=== PATIENT | male | born 1960 | race Caucasian/White ===

== ENCOUNTER 2021-01-26 14:17 | Emergency (ER) | payer OTHER, SELFPAY ==
[~2021-01-26] VITALS: Ht 172.7 cm; Wt 99.3 kg
[~2021-01-26 14:17] MED LIST: BRIM5SOL3 OP; CEPH500C16 PO; DORZ10SO11 OP; GLIP5TER PO; LATA2.5S14 OP; METF1000 PO; NETA2.5D OP
[2021-01-26 14:31] VITALS: BP 124/65
[2021-01-26] MEDS ORDERED: LIDOCAINE MPF 1% 10 MG/ML VIAL INJ ONE (15:10)
[2021-01-26] MEDS ORDERED: KETOROLAC 30 MG/ML VIAL IM ONE (15:10)
[2021-01-26] MEDS ORDERED: CEPH-588 PO (15:46)
[2021-01-26] MEDS ORDERED: ACET-10509 PO (15:46)
--- NOTE | 2021-01-26 15:53 | NUR ---
60/M presents to ED with right elbow pain. Patient states he had an infection that was surgically cleared one month ago. Patient states 5 days ago the site began to hurt and "feel infected." Patient states he went to be seen at [facility] this week and was sent home with antibiotics but states no relief. Right elbow appears red, swollen and infected. Patient describes it as 8/10 sharp pain when moving it, 5/10 when not in use. Patient able to move extremities appropriately, pulses and sensation equal bilaterally.
--- NOTE | 2021-01-26 15:59 | NUR ---
PT WOUND DRESSED WITH NON-ADHERENT
[2021-01-26 16:01] VITALS: BP 124/65
--- NOTE | 2021-01-26 16:02 | NUR ---
Patient discharged with v/s stable. Written and verbal after care instructions given and explained. Patient alert, oriented and verbalized understanding of instructions. Ambulatory with steady gait. All questions addressed prior to discharge. ID band removed. Patient advised to follow up with PMD. Rx of Tylenol extra strength and Keflex given. Patient educated on indication of medication including possible reaction and side effects. Opportunity to ask questions provided and answered.
== END 2021-01-26 16:02 | disposition home or self-care (01) ==
LOC: MED 14:17
DX: L02.511 Cutaneous abscess of right hand (principal); M25.521 Pain in right elbow; E11.9 Type 2 diabetes mellitus without complications; I10 Essential (primary) hypertension; Z79.899 Other long term (current) drug therapy; W19.XXXA Unspecified fall, initial encounter; Y93.89 Activity, other specified; Y92.89 Other specified places as the place of occurrence of the external cause; Y99.8 Other external cause status
CPT/HCPCS: 10060; 96372; 99283; J1885; J2001

== ENCOUNTER 2021-01-29 11:01 | Emergency (ER) | payer OTHER ==
[~2021-01-29] VITALS: Ht 172.7 cm; Wt 98.0 kg
[~2021-01-29 11:01] MED LIST changes: +ACET-10509 PO; +CEPH-588 PO
[2021-01-29 11:05] VITALS: BP 137/71
[2021-01-29 11:20] VITALS: BP 137/71
== END 2021-01-29 11:20 | disposition home or self-care (01) ==
LOC: MED 11:01
DX: L02.413 Cutaneous abscess of right upper limb (principal); E11.9 Type 2 diabetes mellitus without complications; I10 Essential (primary) hypertension; Z79.84 Long term (current) use of oral hypoglycemic drugs; Z79.899 Other long term (current) drug therapy
CPT/HCPCS: 99281

== ENCOUNTER 2021-05-28 14:50 | Inpatient (IN) | payer OTHER ==
[~2021-05-28] VITALS: Ht 172.7 cm; Wt 86.2 kg
[2021-05-28] MEDS ORDERED: KETOROLAC 30 MG/ML VIAL ONE (15:38)
[2021-05-28] MEDS ORDERED: ONDANSETRON 4 MG/2 ML VIAL ONE (15:38)
[2021-05-28] MEDS ORDERED: MORPHINE SULFATE 4 MG/ML SYR ONE (15:39)
[2021-05-29 02:05] LABS: ANION GAP 14.2 (8-16); CARBON DIOXIDE 25.8 mmol/L (21-32)
[2021-05-29 02:06] LABS: ALBUMIN 2.8 g/dL (3.4-5.0); TOTAL BILIRUBIN 0.2 mg/dL (0.0-1.0)
[2021-05-29 02:08] LABS: HEMATOCRIT 33.6 % (36-52); HEMOGLOBIN 11.2 g/dL (12.0-18.0); MEAN CORPUSCULAR HEMOGLOBIN 29 pg (27-31); MEAN CORPUSCULAR HGB CONC 33 g/dL (33-37); MEAN CORPUSCULAR VOLUME 85.6 fL (80-94); PLATELET COUNT (AUTO) 467 K/uL (140-450); RED BLOOD CELL COUNT(AUTO) 3.92 MIL/uL (4.20-6.10); RED CELL DISTRIBUTION WIDTH 16.5 % (11.6-13.7); WHITE BLOOD COUNT (AUTO) 11.9 K/uL (4.8-10.8)
[2021-05-29 02:09] LABS: BASOPHILS % (AUTO) 0.1 % (0.0-2.0); EOSINOPHILS % (AUTO) 0.3 % (0.0-4.0); LYMPHOCYTES # (AUTO) 1.8 K/uL (2.0-11.5); LYMPHOCYTES % (AUTO) 15.4 % (20.5-51.1); MONOCYTES # (AUTO) 0.8 K/uL (0.8-1.0); MONOCYTES % (AUTO) 6.6 % (1.7-9.3); NEUTROPHILS # (AUTO) 9.2 K/uL (1.8-7.7); NEUTROPHILS % (AUTO) 77.6 % (42.2-75.2)
[2021-05-29] MEDS ORDERED: MORPHINE SULFATE 4 MG/ML SYR ONE (02:15)
--- NOTE | 2021-05-29 02:20 | NUR ---
morhpine 4mg given to patient via IV. patient tolerated Medicine well. morphine 4mg given at [id number].
[2021-05-29] MEDS ORDERED: ACETAMINOPHEN 325 MG TAB PO PRN (03:10)
--- NOTE | 2021-05-29 03:55 | NUR ---
REFER TO DOWNTIME RECORDS
--- NOTE | 2021-05-29 03:56 | NUR ---
Patient appears to be resting comfortably in bed-- Low fowlers, eyes closed. Vital Signs within normal limits. Respirations even and unlabored. No sign of distress noted. Safety measures are in place, patient on the pvc monitor, and will continue to monitor patient.
--- NOTE | 2021-05-29 05:56 | NUR ---
Patient will be admitted to care of Sriram ALVARES. Admited to Med/Surg. Belongings list completed. Report to PURA RAMOS.
--- NOTE | 2021-05-29 06:05 | NUR ---
PT MOVED TO [facility] DEPT. FOR ADMSSION
[2021-05-29 06:15] VITALS: BP 146/69
--- NOTE | 2021-05-29 06:20 | NUR ---
ADMITTED THE PATIENT FROM ER VIA WHEELCHAIR. PATIENT A/A/OX4, AMBULATES WITH MINIMAL ASSIST AND ALSO USES CRUTCHES PER PATIENT. PATIENT CRUTCHES AT THE BEDSIDE. PATIENT NOT IN ANY DISTRESS AND NO COMPLAIN AT THIS TIME. VSS, AFEBRILE, SATING 96% ON RA. ORIENTED THE PATIENT TO THE ROOM SETTING AND USE OF CALL LIGHT SYSTEM. PATIENT VERBALIZED UNDERSTANDING WITH THE POC. CALL LIGHT WITHIN REACH WILL CONTINUE POC AND WILL ENDORSE THE PATIENT TO THE ONCOMING RN FOR CONTINUITY OF CARE.
[2021-05-29 07:05] LABS: BASOPHILS # (AUTO) 0.1 K/uL (0.00-0.22); BASOPHILS % (AUTO) 0.6 % (0.0-2.0); EOSINOPHILS % (AUTO) 0.5 % (0.0-4.0); HEMATOCRIT 35.4 % (36-52); HEMOGLOBIN 11.6 g/dL (12.0-18.0); LYMPHOCYTES # (AUTO) 2.5 K/uL (2.0-11.5); LYMPHOCYTES % (AUTO) 25.2 % (20.5-51.1); MEAN CORPUSCULAR HEMOGLOBIN 29 pg (27-31); MEAN CORPUSCULAR HGB CONC 33 g/dL (33-37); MEAN CORPUSCULAR VOLUME 86.9 fL (80-94); MONOCYTES # (AUTO) 0.6 K/uL (0.8-1.0); MONOCYTES % (AUTO) 5.7 % (1.7-9.3); NEUTROPHILS # (AUTO) 6.7 K/uL (1.8-7.7); PLATELET COUNT (AUTO) 467 K/uL (140-450); RED BLOOD CELL COUNT(AUTO) 4.07 MIL/uL (4.20-6.10); RED CELL DISTRIBUTION WIDTH 16.3 % (11.6-13.7); WHITE BLOOD COUNT (AUTO) 9.9 K/uL (4.8-10.8)
[2021-05-29] MEDS: BLOOD GLUCOSE MONITORING 1 DEV DEV FS SCH ×4 (07:30→20:47)
[2021-05-29 07:36] LABS: ALBUMIN 2.8 g/dL (3.4-5.0); ANION GAP 11.8 (8-16); CARBON DIOXIDE 26.5 mmol/L (21-32); CREATININE 0.8 mg/dL (0.6-1.3); POTASSIUM 4.3 mmol/L (3.5-5.1); TOTAL BILIRUBIN 0.2 mg/dL (0.0-1.0)
--- NOTE | 2021-05-29 08:00 | NUR ---
RECEIVED PATIENT CARE AND REPORT FROM [facility] NURSE OVER THE PHONE. PATIENT RESTING IN BED WITH EYES CLOSED. LAYING ON RIGHT SIDE. NO VISIBLE S/S OF DISTRESS, DISCOMFORT, SOB OR PAIN. ALL NEEDS HAVE BEEN MET AT THIS TIME.
[2021-05-29] MEDS: INSULIN LISPRO SLIDING SCALE 100 UNITS/ML VIAL SUBQ PRN ×4 (08:46→20:46)
[2021-05-29] MEDS ORDERED: ALBUTEROL SULFATE/IPRATROPIU 3 ML SOL IH PRN (14:25)
[2021-05-29] MEDS: HYDROcodone/APAP 5/325 MG 1 TAB TAB PO PRN (14:38)
[2021-05-29 16:00] VITALS: BP 161/68
[2021-05-29] MEDS: DOCUSATE SODIUM 100 MG GELCAP PO SCH (16:19)
[2021-05-29] MEDS ORDERED: hydrALAZINE 10 MG TAB PO PRN (18:55)
--- NOTE | 2021-05-29 19:59 | NUR ---
PT SEEN AND ASSESSED. FOUND PT ON ROOM AIR WITH SPO2 OF 98%. PT IS IN NO RESPIRATORY DISTRESS AT THIS TIME. WILL CONTINUE TO MONITOR PT.
--- NOTE | 2021-05-29 20:00 | NUR ---
NURSE REPORT REPORT OBTAINED FROM [facility] NURSE KATI AND THIS NURSE ASSUMED CARE OF PATIENT. RECEIVED PATIENT AMB TO BATHROOM BY HIMSELF WITH USE OF CRUTCHES. HE ASKED FOR A URINAL. HE WAS INSTRUCTED TO USE THE URINAL PROPERLY SO NOT TO SPILL ON THE FLOOR. TAMAZIGHT SPEAKING. DEMONSTRATED TO PATIENT. PATIENT JUST LAUGH.
--- NOTE | 2021-05-29 21:00 | NUR ---
NURSE CARE BG AT HS- 162. GIVEN 2 UNITS HUMALOG.
[2021-05-30] VITALS: BP 123/69
--- NOTE | 2021-05-30 | NUR ---
NURSE CARE VSS. AFEB. NO C/O PAIN OR DISCOMFORT.
[2021-05-30] MEDS: MORPHINE SULFATE 4 MG/ML SYR IVP PRN ×3 (01:18→19:55)
--- NOTE | 2021-05-30 04:00 | NUR ---
NURSE NOTES MEDICATED FOR PAIN WITH MORPHINE 4 MG IVP AT6 0118.L NO FURTHER C/O PAIN
[2021-05-30 06:22] LABS: ALBUMIN 2.6 g/dL (3.4-5.0); ANION GAP 9.2 (8-16); CARBON DIOXIDE 26.6 mmol/L (21-32); CREATININE 0.7 mg/dL (0.6-1.3); MAGNESIUM 1.8 mg/dL (1.8-2.4); POTASSIUM 3.8 mmol/L (3.5-5.1); TOTAL BILIRUBIN 0.2 mg/dL (0.0-1.0)
[2021-05-30 06:28] LABS: BASOPHILS % (AUTO) 0.1 % (0.0-2.0); EOSINOPHILS # (AUTO) 0.1 K/uL (0-0.4); EOSINOPHILS % (AUTO) 1.2 % (0.0-4.0); HEMATOCRIT 33.5 % (36-52); LYMPHOCYTES # (AUTO) 2.6 K/uL (2.0-11.5); LYMPHOCYTES % (AUTO) 26.4 % (20.5-51.1); MEAN CORPUSCULAR HEMOGLOBIN 29 pg (27-31); MEAN CORPUSCULAR HGB CONC 33 g/dL (33-37); MEAN CORPUSCULAR VOLUME 86.9 fL (80-94); MONOCYTES # (AUTO) 0.6 K/uL (0.8-1.0); MONOCYTES % (AUTO) 6.4 % (1.7-9.3); NEUTROPHILS # (AUTO) 6.6 K/uL (1.8-7.7); NEUTROPHILS % (AUTO) 65.9 % (42.2-75.2); PLATELET COUNT (AUTO) 454 K/uL (140-450); RED BLOOD CELL COUNT(AUTO) 3.85 MIL/uL (4.20-6.10); RED CELL DISTRIBUTION WIDTH 16.3 % (11.6-13.7)
[2021-05-30] MEDS: BLOOD GLUCOSE MONITORING 1 DEV DEV FS SCH ×4 (07:01→20:04)
--- NOTE | 2021-05-30 07:25 | NUR ---
NURSE REPORT AND ENDORSEMENT REPORT GIVEN TO [facility] NURSE FRIEDA TO ASSUME CARE OF PATIENT. ALL QUESTIONS ANSWERED.
--- NOTE | 2021-05-30 07:25 | NUR ---
Received report from pm nurse. Patient resting in bed, respirations even & nonlabored in room air. No signs of pain. Call light within reach.
[2021-05-30 08:00] VITALS: BP 150/80
--- NOTE | 2021-05-30 08:24 | NUR ---
PATIENT HAS BEEN SCREENED AND CATEGORIZED LOW NUTRITION RISK. PATIENT WILL BE SEEN WITHIN 7 DAYS OF ADMISSION. 06/04/[address]
[2021-05-30] MEDS: DOCUSATE SODIUM 100 MG GELCAP PO SCH (08:44)
--- NOTE | 2021-05-30 09:30 | NUR ---
Right elbow wound reopened and draining heavy purulent discharge. Patient c/o mild pain to site and states it is tolerable. Dr. Freitas notified with wound care order and wound cx.
--- NOTE | 2021-05-30 09:45 | NUR ---
Wound care provided to right elbow. Patient tolerated procedure well.
[2021-05-30] MEDS ORDERED: VANCOMYCIN PER PHARMACY MC PRN (09:50)
[2021-05-30] MEDS: VANCOMYCIN HCL 1.25 GM in DEXTROSE 5% 250 ML IV SCH ×2 (11:30→23:22)
[2021-05-30] MEDS: INSULIN LISPRO SLIDING SCALE 100 UNITS/ML VIAL SUBQ PRN ×2 (12:19→20:04)
[2021-05-30] MEDS: HYDROcodone/APAP 5/325 MG 1 TAB TAB PO PRN (13:06)
--- NOTE | 2021-05-30 13:59 | NUR ---
DC PLANNING: CM SPOKE WITH THE PATIENT BY PHONE USING A JOINTER MACHINE OPERATOR. THE PATIENT LIVES IN A SINGLE STORY HOUSE WITH HIS NIECE, HER AND THEIR CHILDREN. HE SEES HIS PCP REGULARLY, AND WAS RECENTLY IN [facility] FOR 2 WEEKS FOR SEPSIS, AND THEN DC'D TO [facility] FOR 4 WEEKS. HE IS ABLE TO AMBULATE FOR 3 BLOCKS WITH FREQUENT RESTS, AND USES A FWW OR CRUTCHES. THE PATIENT IS INDEPENDENT WITH ADL'S, HE ALSO HAS A SHOWER CHAIR, AND HAS HAD HOME HEALTH IN THE PAST BUT CAN'T REMEMBER THE AGENCIES NAME. HE STATES THAT HIS FWW IS BROKEN, ORDER FOR FWW FAXED TO [facility] PER THEIR INSTRUCTIONS, CM ASKED THAT IT BE DELIVERED TO THE PATIENTS HOUSE. PATIENT WILL HAVE WOUND CARE SUPPLIES SENT HOME WITH HIM, FAMILY TO CHANGE DRESSING NEEDED. CM WILL FOLLOW FOR NEEDS. Addendum: 05/30/21 at 1527 by Peace Gallegos CM DC PLANNING: ORDER FOR THE PATIENT TO HAVE A GENERAL SURGERY CONSULT FAXED TO HIS PCP DR NUBIA DAY. CM WILL FOLLOW FOR NEEDS.
[2021-05-30 16:00] VITALS: BP 106/56
--- NOTE | 2021-05-30 20:00 | NUR ---
NURSE REPORT REPORT OBTAINED FROM [facility] AND THIS NURSE ASSUMED CARE OF PATIENT. VSS. AFEB. MEDICATED FOR PAIN WITH MORPHINE 4 MG IVP WITH RELIEF.
--- NOTE | 2021-05-30 21:00 | NUR ---
NURSE NOTES BG 286. GIVEN 6 UNITS HUMALOG.
[2021-05-31] VITALS: BP 138/63
[2021-05-31] MEDS: MORPHINE SULFATE 4 MG/ML SYR IVP PRN ×4 (04:17→20:30)
--- NOTE | 2021-05-31 04:30 | NUR ---
NURSE NOTES VSS. AFEB. MEDICATED FOR PAIN AT 1955, 000, AND 0417 AND RELIEVED OF PAIN. ON IVPB ANTIBIOTICS VANCO AND ROCEPHIN.
[2021-05-31 06:49] LABS: BASOPHILS # (AUTO) 0.1 K/uL (0.00-0.22); BASOPHILS % (AUTO) 0.6 % (0.0-2.0); EOSINOPHILS # (AUTO) 0.2 K/uL (0-0.4); HEMATOCRIT 33.3 % (36-52); HEMOGLOBIN 10.8 g/dL (12.0-18.0); LYMPHOCYTES % (AUTO) 24.5 % (20.5-51.1); MEAN CORPUSCULAR HEMOGLOBIN 29 pg (27-31); MEAN CORPUSCULAR HGB CONC 33 g/dL (33-37); MEAN CORPUSCULAR VOLUME 87.7 fL (80-94); MONOCYTES # (AUTO) 0.6 K/uL (0.8-1.0); MONOCYTES % (AUTO) 7.7 % (1.7-9.3); NEUTROPHILS # (AUTO) 5.4 K/uL (1.8-7.7); NEUTROPHILS % (AUTO) 65.2 % (42.2-75.2); PLATELET COUNT (AUTO) 431 K/uL (140-450); RED CELL DISTRIBUTION WIDTH 16.3 % (11.6-13.7); WHITE BLOOD COUNT (AUTO) 8.2 K/uL (4.8-10.8)
[2021-05-31] MEDS: INSULIN LISPRO SLIDING SCALE 100 UNITS/ML VIAL SUBQ PRN ×3 (07:12→20:40)
[2021-05-31] MEDS: BLOOD GLUCOSE MONITORING 1 DEV DEV FS SCH ×4 (07:13→20:39)
--- NOTE | 2021-05-31 07:30 | NUR ---
RECEIVED BEDSIDE REPORT FROM [facility] SHIFT NURSE. PATIENT RESTING IN BED, L SIDE LATERAL, ANSWERS TO NAME, ALERT. BREATHING EVEN AND UNLABORED, NO SIGNS OF ACUTE DISTRESS NOTED ON RA. L AC 20G, SL. BED IN LOW POSITION, CALL LIGHT WITHIN REACH, SAFETY MEASURES IN PLACE.
--- NOTE | 2021-05-31 07:30 | NUR ---
NURSE REPORT REPORT GIVEN TO [facility] NURSE MARCELL TO ASSUME CARE OF PATIENT. SBAR GIVEN. ALL QUESTIONS ANSWERED. KAITY REED RN
[2021-05-31 08:00] VITALS: BP 138/72
[2021-05-31 08:15] LABS: ALBUMIN 2.4 g/dL (3.4-5.0); ANION GAP 14.5 (8-16); CARBON DIOXIDE 24.3 mmol/L (21-32); CREATININE 0.7 mg/dL (0.6-1.3); MAGNESIUM 1.8 mg/dL (1.8-2.4); POTASSIUM 3.8 mmol/L (3.5-5.1); TOTAL BILIRUBIN 0.2 mg/dL (0.0-1.0)
[2021-05-31] MEDS: DOCUSATE SODIUM 100 MG GELCAP PO SCH (09:01)
[2021-05-31] MEDS: VANCOMYCIN HCL 1.25 GM in DEXTROSE 5% 250 ML IV SCH ×2 (11:00→23:00)
--- NOTE | 2021-05-31 11:53 | NUR ---
PATIENT IN BED, COMPLAINING OF BACK PAIN, PROVIDED PRN MORPHINE PER MD ORDERS. PATIENT NOW LAYING IN BED, STATES HE WILL TRY TO SLEEP.
--- NOTE | 2021-05-31 15:57 | NUR ---
PATIENT IN BED WATCHING TV, DENIES PAIN AT THIS TIME, ALL NEEDS MET, NO SIGNS OF ACUTE DISTRESS NOTED.
[2021-05-31 16:00] VITALS: BP 146/73
--- NOTE | 2021-05-31 20:00 | NUR ---
NURSE REPORT REPORT OBTAINED FROM [facility] NURSE MARCELL AND THIS NURSE ASSUMED CARE OF PATIENT. RECEIVED PATIENT ASLEEP WITHOUT ANY SXS OF PAIN OR DISCOMFORT.
--- NOTE | 2021-05-31 21:00 | NUR ---
NURSE NOTES BG AT 4- 264. GIVEN 6 UNITS HUMALOG.
[2021-05-31 22:00] VITALS: BP 135/70
--- NOTE | 2021-05-31 22:30 | NUR ---
NURSE NOTES VSS. AFEB. NO C/O PAIN OR DISCOMFORT.
[2021-06-01] MEDS: MORPHINE SULFATE 4 MG/ML SYR IVP PRN ×2 (05:55→11:44)
--- NOTE | 2021-06-01 06:55 | NUR ---
NURSE NOTES BG BEFORE BREAKFAST 178. GIVEN 2 UNITS HUMALOG. IV IN LEFT AC LEAKING AND L FOREARM PAINFUL. BOTH SL DC'D WITH CATHETER INTACT. 22 G CATHETER INSERTED IN LEFT HAND.
--- NOTE | 2021-06-01 07:00 | NUR ---
NURSE NOTES MEDICATED FOR PAIN WITH MORPHINE 4 MG IVP AT 0555. BG BEFORE BREAKFAST 178- GIVEN 2 UNITS HUMALOG. IV TO LEFT AC LEAKING AND LEFT ARM HURTING. BOTH DC'D. 22 G CATHETER INSERTED INTO L HAND. FLUSHED AND PATENT.
[2021-06-01 07:10] LABS: BASOPHILS % (AUTO) 0.4 % (0.0-2.0); EOSINOPHILS # (AUTO) 0.2 K/uL (0-0.4); EOSINOPHILS % (AUTO) 1.9 % (0.0-4.0); HEMATOCRIT 32.3 % (36-52); HEMOGLOBIN 10.6 g/dL (12.0-18.0); LYMPHOCYTES # (AUTO) 2.5 K/uL (2.0-11.5); LYMPHOCYTES % (AUTO) 27.3 % (20.5-51.1); MEAN CORPUSCULAR HEMOGLOBIN 29 pg (27-31); MEAN CORPUSCULAR HGB CONC 33 g/dL (33-37); MEAN CORPUSCULAR VOLUME 87.3 fL (80-94); MONOCYTES # (AUTO) 0.8 K/uL (0.8-1.0); MONOCYTES % (AUTO) 8.5 % (1.7-9.3); NEUTROPHILS # (AUTO) 5.7 K/uL (1.8-7.7); NEUTROPHILS % (AUTO) 61.9 % (42.2-75.2); PLATELET COUNT (AUTO) 453 K/uL (140-450); RED CELL DISTRIBUTION WIDTH 16.4 % (11.6-13.7); WHITE BLOOD COUNT (AUTO) 9.3 K/uL (4.8-10.8)
[2021-06-01] MEDS: INSULIN LISPRO SLIDING SCALE 100 UNITS/ML VIAL SUBQ PRN ×2 (07:40→12:03)
[2021-06-01 07:42] LABS: ALBUMIN 2.5 g/dL (3.4-5.0); ANION GAP 14.5 (8-16); CARBON DIOXIDE 23.2 mmol/L (21-32); CREATININE 0.6 mg/dL (0.6-1.3); MAGNESIUM 1.7 mg/dL (1.8-2.4); POTASSIUM 3.7 mmol/L (3.5-5.1); TOTAL BILIRUBIN 0.2 mg/dL (0.0-1.0)
[2021-06-01] MEDS: BLOOD GLUCOSE MONITORING 1 DEV DEV FS SCH ×2 (07:42→11:57)
[2021-06-01 08:00] VITALS: BP 123/52
[2021-06-01] MEDS: DOCUSATE SODIUM 100 MG GELCAP PO SCH (08:54)
--- NOTE | 2021-06-01 10:21 | NUR ---
RECEIVED REPORT FROM GRANULATOR MACHINE OPERATOR NURSE. PT STABLE. NO S/S OF DISTRESS. CALL LIGHT IN REACH. ALL SAFETY MEASURES IN PLACE.
--- NOTE | 2021-06-01 10:30 | NUR ---
NURSE REPORT AND ENDORSEMENT REPORT GIVEN TO [facility] NURSE SUJATA TO ASSUME CARE OF PATIENT. PT NEEDS TO BE ASSISTED TO AMBULATE IN HALLWAY. DRSG TO R ELBOW TO BE CHANGED.
[2021-06-01] MEDS: VANCOMYCIN HCL 1.25 GM in DEXTROSE 5% 250 ML IV SCH (11:44)
--- NOTE | 2021-06-01 12:09 | NUR ---
PT STATED PAIN 10/10. PATIENT INSTRUCTED ON BREATHING EXERCISES AND MEDICATED. EDUCATED ON MEDICATIONS GIVEN. PT VERBALIZED UNDERSTANDING. PT TOLERATED MEDICATIONS WELL. BG 280. COVERAGE GIVEN 6 UN. PT STABLE. NO S/S OF DISTRESS. CALL LIGHT IN REACH. ALL SAFETY MEASURES IN PLACE. IV FLUIDS RUNNING PER MD ORDER
--- NOTE | 2021-06-01 12:45 | NUR ---
SPOKE WITH MD. WAITING FOR ORTHO CONSULT TO SEE PATIENT ELBOW WOUND. PLAN FOR DISCHARGE TODAY WITH [facility].
[2021-06-01] MEDS ORDERED: CLIN300C2 PO (13:35)
[2021-06-01] MEDS ORDERED: ACET-1182 PO (13:35)
[2021-06-01 16:00] VITALS: BP 167/78
--- NOTE | 2021-06-01 16:26 | NUR ---
PROFESSOR OF FOOD BIOCHEMISTRY SERVICE USED TO DISCUSS DISCHARGE INSTRUCTIONS. PATIENT VERBALIZED UNDERSTANDING AND SIGNED. NO S/S OF DISTRESS. PATIENT REQUESTED FLU VACCINATION. PATIENT DETERMINING TRANSPORTATION. ALL SAFETY MEASURES IN PLACE.
--- NOTE | 2021-06-01 16:30 | NUR ---
PT REFUSED BG, PT DISCHARGED AND AWAITING TRANSPORTATION. NO S/S OF DISTRESS. CALL LIGHT IN REACH. ALL SAFETY MEASURES IN PLACE
[2021-06-01] MEDS ORDERED: FLU VACCINE QS2021-22 0.5 ML SYR IMVAC ONE ×2 (17:25→17:29)
[2021-06-01] MEDS: HYDROcodone/APAP 5/325 MG 1 TAB TAB PO PRN (17:30)
--- NOTE | 2021-06-01 17:35 | NUR ---
PT STATED PAIN 01/16. PT MEDICATED PER MD ORDER. ADMINISTERED FLU VACCINE. EDUCATED PATIENT ON VACCINE AND MEDICATION. PATIENT VERBALIZED UNDERSTANDING. CALL LIGHT IN REACH. ALL SAFETY MEASURES IN PLACE.
--- NOTE | 2021-06-01 18:42 | NUR ---
PATIENT TRANSPORTED TO VEHICLE. Addendum: 06/01/21 at 1845 by Madelin Sands RN RN PATIENT LEFT WITH ALL BELONGINGS. IV REMOVED AND CANULA INTACT. WOUND WAS CLEANSED AND PHOTOS WERE TAKEN AND ADDED TO CHART. PATIENT TOLERATED DRESSING CHANGE WELL. ALL SAFETY MEASURES IN PLACE.
== END 2021-06-01 18:30 | disposition home or self-care (01) | DRG 383 ==
LOC: MED 14:50 → MMU 20:04 → MTU 05-29 06:07
PROVIDERS: ADMIT Internal Medicine; ATTEND Internal Medicine
DX: L02.413 Cutaneous abscess of right upper limb (principal); E11.9 Type 2 diabetes mellitus without complications; M54.50 Low back pain, unspecified; Z79.2 Long term (current) use of antibiotics; Z79.899 Other long term (current) drug therapy
CPT/HCPCS: 36415; 71045; 73080; 80053; 80202; 82150; 82948; 83690; 83735; 85025; 85651; 86140; 87040; 87070; 87075; 87081; 87186; 87205; 97116; 97163-GP; 99285; J0696; J1885; J2270; J2405; J3370; J7060; Q0092

== ENCOUNTER 2021-09-16 23:20 | Emergency (ER) | payer OTHER ==
[~2021-09-16] VITALS: Ht 162.6 cm; Wt 72.6 kg
[2021-09-16 23:20] VITALS: BP 122/55
[~2021-09-16 23:20] MED LIST changes: -ACET-10509 PO; +ACET-1182 PO; -CEPH-588 PO; -CEPH500C16 PO; +CLIN300C2 PO
--- NOTE | 2021-09-16 23:20 | NUR ---
TO BED #02 BIBA WITH C/O DIZZINESS AND BACKPAIN.
[2021-09-16] MEDS ORDERED: MORPHINE SULFATE 4 MG/ML SYR IVP ONE (23:40)
[2021-09-16] MEDS ORDERED: ONDANSETRON 4 MG/2 ML VIAL IVP ONE (23:40)
[2021-09-16 23:59] LABS: BASOPHILS % (AUTO) 0.4 % (0.0-2.0); EOSINOPHILS # (AUTO) 0.1 K/uL (0-0.4); EOSINOPHILS % (AUTO) 1.4 % (0.0-4.0); HEMATOCRIT 24.5 % (36-52); HEMOGLOBIN 7.8 g/dL (12.0-18.0); LYMPHOCYTES # (AUTO) 2.2 K/uL (2.0-11.5); LYMPHOCYTES % (AUTO) 21.2 % (20.5-51.1); MEAN CORPUSCULAR HEMOGLOBIN 27 pg (27-31); MEAN CORPUSCULAR HGB CONC 32 g/dL (33-37); MEAN CORPUSCULAR VOLUME 84.1 fL (80-94); MONOCYTES # (AUTO) 0.8 K/uL (0.8-1.0); MONOCYTES % (AUTO) 8.1 % (1.7-9.3); NEUTROPHILS # (AUTO) 7.2 K/uL (1.8-7.7); NEUTROPHILS % (AUTO) 68.9 % (42.2-75.2); PLATELET COUNT (AUTO) 546 K/uL (140-450); RED BLOOD CELL COUNT(AUTO) 2.92 MIL/uL (4.20-6.10); RED CELL DISTRIBUTION WIDTH 18.9 % (11.6-13.7); WHITE BLOOD COUNT (AUTO) 10.4 K/uL (4.8-10.8)
--- NOTE | 2021-09-17 00:10 | NUR ---
61 YO/M BIBA FROM HOME W C/O LOWER BACK PAIN X1 WEEK PRESSURE/PULSATING 04/18, NON-RAD. PT DENIES INJURY TO BACK BUT REPORTS HX OF BACK SURGERY IN MAR 2021 AND HAS HAD ONGOING ON AND OFF BACK PAIN SINCE. PT ALSO REPORTS SOME EPISODES OF CONFUSION AND DIZZYNESS. PT IS AOX3, GCS 14, INCONTINENT, AND NON-AMBULATORY D/T LOSS OF BL LEG FUNCTION. VSS. PT DENIES CHEST PAIN, SOB, N/V/D, FEVERS, OR CHILLS. PT LAYING IN BED W HOB ELEVATED. PBED LOCKED IN LOWEST POSITION W X2 SIDERAILS UP FOR PT SAFETY. CONNECTED TO MONITOR, BREATHING EVEN AND UNKABORED. WILL CONTINUE TO MONITOR. PMH:DIABETES, BACK SURGERY ALLERGIES: DENIES
[2021-09-17 00:19] LABS: ALBUMIN 1.5 g/dL (3.4-5.0); ANION GAP 12.2 (8-16); CARBON DIOXIDE 23.8 mmol/L (21-32); CREATININE 1.2 mg/dL (0.6-1.3); TOTAL BILIRUBIN 0.4 mg/dL (0.0-1.0)
--- NOTE | 2021-09-17 00:21 | NUR ---
xray at bedside
[2021-09-17] MEDS ORDERED: MORPHINE SULFATE 4 MG/ML SYR IVP ONE ×2 (00:45→05:40)
--- NOTE | 2021-09-17 00:58 | NUR ---
Gato pollock in [facility] - 09/17/21 at 0100 by JAKUB PT TAKEN TO CT VIA MAGNO
--- NOTE | 2021-09-17 00:58 | NUR ---
18G IV ESTABLISHED TO PT R AC FOR CT SCAN
--- NOTE | 2021-09-17 00:59 | NUR ---
PT REPORTS BEING INCONTINENT AND OK WITH STRAIGHT CATH TO COLLECT URINE SAMPLE. PER ERMD TO STRAIGHT CATH PT.
--- NOTE | 2021-09-17 01:01 | NUR ---
PATIENT REPORTS PAIN IMPROVEMENT, DOES NOT NEED ANY PAIN MEDICATION AT THIS TIMME.
--- NOTE | 2021-09-17 01:11 | NUR ---
PT TAKEN TO CT VIA MAGNO
--- NOTE | 2021-09-17 01:56 | NUR ---
PT URINE COLLECTED VIA STRAIGHT CATH, PT PENIS SWOLLEN, RED AND WHITE ELASTIC/THICH DISCHARGE NOTED.
[2021-09-17] MEDS ORDERED: MORPHINE SULFATE 2 MG/ML SYR ONE ×2 (01:57→05:50)
--- NOTE | 2021-09-17 02:06 | NUR ---
PT C/O OF BETINA PAIN. MEDICATED FOR PAIN.
--- NOTE | 2021-09-17 03:03 | NUR ---
PT APPEARS TO BE RESTING W EYES CLOSED IN L LATERAL POSITION W X2 SIDERAILS UP FOR PT SAFETY. PT CONNECTED TO MONITOR W VSS. BREATHING EVEN AND UNLABORED. WILL CONTINUE TO MONITOR.
[2021-09-17 03:23] LABS: APPEARANCE,URINE CLOUDY (CLEAR); BILIRUBIN,URINE NEGATIVE (NEGATIVE); BLOOD, URINE 3+ (NEGATIVE); COLOR,URINE YELLOW (YELLOW); LEUKOCYTE ESTERASE ,URINE 2+ (NEGATIVE); NITRITE, URINE NEGATIVE (NEGATIVE); UGLUCOSE NEGATIVE (NEGATIVE)
[2021-09-17 03:29] LABS: RBC,URINE 0-5 /HPF (0-5); WBC,URINE TOO MANY TO COUNT /HPF (0-5)
[2021-09-17] MEDS ORDERED: NACL 0.9% 500 ML IV ONE (03:35)
[2021-09-17] MEDS ORDERED: cefTRIAXone 1,000 MG VIAL ONE (04:23)
--- NOTE | 2021-09-17 04:30 | NUR ---
BLOOD CULTURES COLLECTED AND SENT TO LAB.
--- NOTE | 2021-09-17 05:10 | NUR ---
BRIAN SAMPLE COLLECTED AND SENT TO LAB.
--- NOTE | 2021-09-17 05:24 | NUR ---
PT PROVIDED W CLEAN LINENS, PALMIRA CARE, AND REPOSITIONING FOR COMFORT. PT C/O OF BACK PAIN, ERMD MADE AWARE.
--- NOTE | 2021-09-17 07:22 | NUR ---
Report and continuation of care received from PURA Ospina.
--- NOTE | 2021-09-17 07:22 | NUR ---
Pt report given to PURA SCHROEDER. Transfer of care at this time.
--- NOTE | 2021-09-17 07:32 | NUR ---
REPORT CALLED TO PURA FERGUSON FROM [facility] AT THIS TIME.
--- NOTE | 2021-09-17 07:45 | NUR ---
Patient resting with both eyes closed in semi-fowlers position. monitoring manager in place. VSS. Respirations even/unlabored. Bed locked in lowest position, side rails x 1.
--- NOTE | 2021-09-17 09:15 | NUR ---
[facility] at bedside
--- NOTE | 2021-09-17 09:25 | NUR ---
Pt c/o 05/[address] Stein made aware; verbal order received for Fentanyl 75mcg IVP. Orders to be placed.
[2021-09-17] MEDS ORDERED: fentaNYL citrate 0.05 MG/ML VIAL IVP ONE (09:30)
[2021-09-17] MEDS ORDERED: fentaNYL citrate 0.05 MG/ML VIAL ONE (09:30)
[2021-09-17 09:35] VITALS: BP 114/60
--- NOTE | 2021-09-17 09:35 | NUR ---
Patient to be transferred to [facility]. Is being transferred due to higher level of care. Receiving facility has accepting physician and available space. ER physician has signed transfer form. Patient or responsible constitution party has agreed to transfer and signed form. Patient belongings inventoried and will be sent with patient. Copy of nursing notes, lab reports, EKG, Physicians Orders and X-rays to be sent with patient. Report called to UPRA Mendez at receiving facility. [facility]. ETA is 30 min.
== END 2021-09-17 09:35 | disposition short-term general hospital (02) ==
LOC: MED 23:20
DX: S22.089A Unspecified fracture of T11-T12 vertebra, initial encounter for closed fracture (principal); N39.0 Urinary tract infection, site not specified; X58.XXXA Exposure to other specified factors, initial encounter; Y93.89 Activity, other specified; Y92.89 Other specified places as the place of occurrence of the external cause; Y99.8 Other external cause status; Z20.822 Contact with and (suspected) exposure to COVID-19
CPT/HCPCS: 36415; 71045; 72129; 74177; 80053; 81001; 83605; 83690; 84484; 85025; 86140; 87040; 87086; 87426; 93005; 96365; 96375; 96376; 99291; J0696; J2270; J2405; J3010; J7030; Q0092; Q9967